=== PATIENT | female | born 1960 | race Caucasian/White ===

== ENCOUNTER 2016-03-16 14:41 | Emergency (ER) | payer BC ==
[~2016-03-16] VITALS: Ht 157.5 cm; Wt 90.0 kg
[~2016-03-16 14:41] MED LIST: CELEXA PO; VESICARE PO
[2016-03-16 14:47] VITALS: Ht 157.5 cm; Wt 90.0 kg
[2016-03-16] MEDS ORDERED: PROM5SYR2 PO (14:59)
[2016-03-16] MEDS ORDERED: AZIT250T94 PO (14:59)
--- NOTE | 2016-03-16 15:04 | ERD ---
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 She denies any nausea or vomiting. Her symptoms have been going on since Monday approximately 3-4 days. She is taking [id number] medications at home. No chest pain or shortness of breath. ROS All systems reviewed and are negative except as per history of present illness. Medications Home Meds Active Scripts Promethazine HCl/Codeine (Prometh-Codein 6.25-10 mg/5 ml) 5 Ml Syrup, 5 ML PO Q8 , #6 OZ Prov:CASANDRA BILLS PA-C 03/16/16 Azithromycin* (Zithromax*) 250 Mg Tablet, 250 MG PO .ZPACK DIRECTED, #6 TAB TAKE 500 MG (2 TABS) THE FIRST DAY THEN 250 MG (1 TAB) DAYS 2-5 Prov:CASANDRA BILLS PA-C 03/16/16 Reported Medications [Celexa] No Conflict Check, PO 06/01/15 [Vesicare] No Conflict Check, PO 06/01/15 Allergies Allergies: Coded Allergies: No Known Allergy (Unverified , 06/01/15) PMhx/Soc History of Surgery: Yes (right elbow, right ankle) Anesthesia Reaction: No Hx Neurological Disorder: No Hx Respiratory Disorders: No Hx Cardiac Disorders: No Hx Psychiatric Problems: Yes (depression ) Hx Miscellaneous Medical Probl: No Hx Alcohol Use: Yes (social) Hx Substance Use: No Hx Tobacco Use: No FmHx Family History: No diabetes Physical Exam Vitals Vital Signs Date Time Temp Pulse Resp B/P Pulse Ox O2 Delivery O2 Flow Rate FiO2 03/16/16 14:47 98.2 69 18 137/69 98 Physical Exam Const: [] Head: Atraumatic Eyes: Normal Conjunctiva ENT: Normal External Ears, Nose and Mouth. Neck: Full range of motion..~ No meningismus. Resp: Clear to auscultation bilaterally Cardio: Regular rate and rhythm, no murmurs Abd: Soft, non tender, non distended. Normal bowel sounds Procedures/MDM 55-year-old female presents with flulike symptoms. Vital signs are normal she is well-appearing. She has passed the point of effectiveness of Tamiflu and therefore I cannot give her Tamiflu however she would like to try antibiotics that she has tried [id number] medications at home. Low suspicion for pneumonia she is discharged with azithromycin and cough syrup. Recommended this patient follow up with her primary care doctor within 48 hours or return to the emergency room for any worsening of symptoms. However this time I do believe there is suitable for outpatient management. I answered all their questions and they agreed with the plan and were discharged home. Departure Diagnosis: Primary Impression: Bronchitis Condition: Stable Patient Instructions: Bronchitis, Antiobiotic Treatment (Adult) Additional Instructions: Call your primary care doctor TOMORROW for an appointment during the next 1-2 days.See the doctor sooner or return here if your condition worsens before your appointment time. CASANDRA BILLS PA-C Mar 16, 2016 15:04
== END 2016-03-16 15:02 | disposition home or self-care (01) ==
LOC: E/R 14:41
DX: J20.9 Acute bronchitis, unspecified (principal)
CPT/HCPCS: 99284

== ENCOUNTER → 2016-04-18 | Outpatient (CLI) | payer BC ==
[~2016-04-18] MED LIST changes: +AZIT250T94 PO; +PROM5SYR2 PO
--- NOTE | 2016-04-18 18:17 | RADRPT ---
PROCEDURE: XR Cervical Spine. CLINICAL INDICATION: Neck pain. TECHNIQUE: Three views of the cervical spine were performed. Frontal, lateral, and AP open-mouth o dontoid. The images were reviewed on a PACS workstation. COMPARISON: None. FINDINGS: There is mild reversal of the normal cervical lordosis. Alignment is otherwise normal. There is no fracture. There is no lytic or blastic lesion. There are degenerative changes with small osteophytes at C5-6 and C6-7. The disk height is normal. The prevertebral soft tissues are normal. IMPRESSION: 1. Mild degenerative change. 2. Mild reversal of the normal lordosis which may be due to spasm or positioning. 3. Otherwise unremarkable images of the cervical spine. RPTAT: QQ .Bryce Kuo MD, Date Time Electronically viewed and signed by .Bryce Kuo MD, on 04/18/2016 18:17 .R/
== END | disposition home or self-care (01) ==
LOC: RAD 17:02
PROVIDERS: ATTEND Internal Medicine
DX: S16.1XXD Strain of muscle, fascia and tendon at neck level, subsequent encounter (principal)
CPT/HCPCS: 72040

== ENCOUNTER → 2016-05-24 | Outpatient (CLI) | payer BC ==
[2016-05-24 07:10] LABS: ADD SCAN DIFF NO
[2016-05-24 07:11] LABS: BASOPHILS % 0.5 % (0.0-2.0); EOSINOPHILS # 0.1 10^3/ul (0.0-0.5); EOSINOPHILS % 2.4 % (0.0-7.0); HEMATOCRIT 40.1 % (37.0-47.0); HEMOGLOBIN 12.7 g/dl (12.0-16.0); LYMPHOCYTES # 1.4 10^3/ul (0.8-2.9); MEAN CORPUSCULAR HEMOGLOBIN 27.4 pg (29.0-33.0); MEAN CORPUSCULAR HGB CONC 31.7 g/dl (32.0-37.0); MEAN CORPUSCULAR VOLUME 86.4 fl (82.0-101.0); MEAN PLATELET VOLUME 9.4 fl (7.4-10.4); MONOCYTE # 0.5 10^3/ul (0.3-0.9); MONOCYTES % 7.6 % (0.0-11.0); NEUTROPHIL # 3.8 10^3/ul (1.6-7.5); PLATELET COUNT 239 10^3/UL (140-415); RED BLOOD COUNT 4.64 10^6/ul (4.20-5.40); RED CELL DISTRIBUTION WIDTH 13.9 % (11.5-14.5); WHITE BLOOD COUNT 5.9 10^3/ul (4.8-10.8)
[2016-05-24 07:35] LABS: ALBUMIN 3.9 g/dl (3.3-4.9); ALBUMIN/GLOBULIN RATIO 1.34; BILIRUBIN,INDIRECT 0.1 mg/dl (0-1.1); BILIRUBIN,TOTAL 0.1 mg/dl (0.2-1.3); CALCIUM 8.9 mg/dl (8.4-10.2); CREATININE 0.73 mg/dl (0.44-1.00); MAGNESIUM 2.1 mg/dl (1.7-2.5); POTASSIUM 4.4 mmol/L (3.5-5.1); TOTAL PROTEIN 6.8 g/dl (6.1-8.1)
[2016-05-24 08:07] LABS: THYROID STIMULATING HORMONE 3.55 MIU/L (0.465-4.680)
[2016-05-24 08:41] LABS: FOLATE 7.9 ng/ml (2.8-20.0)
[2016-05-24 09:03] LABS: CHOL/HDL RATIO 2.6 RATIO
[2016-05-25 15:06] LABS: ANA SCREEN NEGATIVE (NEGATIVE)
== END | disposition home or self-care (01) ==
LOC: LAB 06:52 → EEVIPCON 06:52
PROVIDERS: ATTEND Internal Medicine
DX: E78.5 Hyperlipidemia, unspecified (principal); E03.9 Hypothyroidism, unspecified; E53.8 Deficiency of other specified B group vitamins
CPT/HCPCS: 80053; 80061; 82607; 82746; 83735; 84436; 84443; 85025; 86038

== ENCOUNTER 2016-07-17 12:01 | Emergency (ER) | payer BC ==
[~2016-07-17] VITALS: Ht 157.5 cm; Wt 80.0 kg
[2016-07-17 12:24] VITALS: Ht 157.5 cm; Wt 80.0 kg
[2016-07-17] MEDS ORDERED: PHEN-537 PO (12:26)
[2016-07-17] MEDS ORDERED: NITR-58 PO (12:26)
[2016-07-17 12:29] LABS: URINE BLOOD (Dip) POC 3+ (NEGATIVE)
--- NOTE | 2016-07-17 12:31 | ERD ---
ER Documentation Chief Complaint Date/Time DATE: 07/17/16 TIME: 12:27 Chief Complaint painful urination started this am HPI 55-year-old female complaining of painful urination since this morning. She has urinary urgency and frequency, along with gross hematuria. Patient states that she does not drink much water throughout the day. Her last UTI was about a year ago. Denies fever or chills. Denies flank pain. Patient has history of multifocal multi-myeloma, is currently receiving IVIG treatment. ROS All systems reviewed and are negative except as per history of present illness. Medications Home Meds Active Scripts Phenazopyridine Hcl* (Pyridium*) 100 Mg Tab, 100 MG PO TID Y for URINARY PAIN, # 6 TAB Prov:FAIZA MULLEN. LICENSED PESTICIDE APPLICATOR 07/17/16 Nitrofurantoin Monohyd Macrocr* (Macrobid*) 100 Mg Capsr, 100 MG PO BID for 7 Days, CAP Prov:FAIZA MULLEN. LICENSED PESTICIDE APPLICATOR 07/17/16 Promethazine HCl/Codeine (Prometh-Codein 6.25-10 mg/5 ml) 5 Ml Syrup, 5 ML PO Q8 , #6 OZ Prov:CASANDRA BILLS PA-C 03/16/16 Azithromycin* (Zithromax*) 250 Mg Tablet, 250 MG PO .ZPACK DIRECTED, #6 TAB TAKE 500 MG (2 TABS) THE FIRST DAY THEN 250 MG (1 TAB) DAYS 2-5 Prov:CASANDRA BILLS PA-C 03/16/16 Reported Medications [Celexa] No Conflict Check, PO 06/01/15 [Vesicare] No Conflict Check, PO 06/01/15 Allergies Allergies: Coded Allergies: No Known Allergy (Unverified , 06/01/15) PMhx/Soc History of Surgery: Yes (right elbow, right ankle) Anesthesia Reaction: No Hx Neurological Disorder: No Hx Respiratory Disorders: No Hx Cardiac Disorders: No Hx Psychiatric Problems: Yes (depression ) Hx Miscellaneous Medical Probl: No Hx Alcohol Use: Yes (social) Hx Substance Use: No Hx Tobacco Use: No Physical Exam Vitals Vital Signs Date Time Temp Pulse Resp B/P Pulse Ox O2 Delivery O2 Flow Rate FiO2 07/17/16 12:24 97.6 64 18 147/66 98 Physical Exam General: Well-developed, well-nourished, conscious and coherent, in no distress Skin: Warm and dry without rash, good texture and turgor Head: Normocephalic without evidence of trauma Eyes: Sclera and conjunctivae normal; pupils equal, round, and reactive to light; extraocular movements are intact Neck: Supple without meningismus or adenopathy. Carotids are equal. Trachea midline. No bruits or JVD Chest: Normal AP diameter. Good expansion without retractions. Nontender. Lungs are clear to auscultate bilaterally with good tidal volume Heart: Regular rate and rhythm. No murmur, rub, or gallops heard Abdomen: Soft and nontender without masses, guarding, or rebound. Bowel sounds are active. No hepatosplenomegaly Back: Without spinal or CVA tenderness Pelvis: Suprapubic tenderness. Extremities: Full range of motion. Good strength bilaterally. No clubbing, cyanosis, or edema. Peripheral pulses are intact. Sensation intact Neuro: Alert and oriented 4, GCS 15. Cranial nerves grossly intact. Motor and sensory exams nonfocal. Moves all extremities. Speech clear. Gait normal Procedures/MDM Well-appearing 55-year-old female presents to ED with UTI symptoms: Dysuria, urinary frequency, urgency, hematuria. Urine dip is positive for UTI. No sign of pyelonephritis. Patient appears well, stable for discharge and outpatient management. Medical decision making shared with patient and family. Education provided to patient and family. Patient and family expressed understanding of the plan. Medications on discharge: Macrobid, Pyridium. Follow-up: Primary care provider in 2-3 days or return to ED if worse. Departure Diagnosis: Primary Impression: UTI (urinary tract infection) Urinary tract infection type: acute cystitis Hematuria presence: with hematuria Qualified Code: N30.01 - Acute cystitis with hematuria Condition: Good Patient Instructions: Understanding Urinary Tract Infections (UTIs) Additional Instructions: Call your primary care doctor TOMORROW for an appointment during the next 2-3 days.See the doctor sooner or return here if your condition worsens before your appointment time. FAIZA MULLEN NP Jul 17, 2016 12:31
== END 2016-07-17 13:10 | disposition home or self-care (01) ==
LOC: E/R 12:01 → FTE 13:10
DX: N30.01 Acute cystitis with hematuria (principal); R40.2412 Glasgow coma scale score 13-15, at arrival to emergency department
CPT/HCPCS: 81003; 99283

== ENCOUNTER → 2016-08-26 | Outpatient (CLI) | payer BC ==
[~2016-08-26] MED LIST changes: +NITR-58 PO; +PHEN-537 PO
[2016-08-26 06:56] LABS: ADD SCAN DIFF NO
[2016-08-26 07:14] LABS: BASOPHILS % 0.5 % (0.0-2.0); EOSINOPHILS # 0.1 10^3/ul (0.0-0.5); EOSINOPHILS % 3.1 % (0.0-7.0); HEMATOCRIT 37.2 % (37.0-47.0); HEMOGLOBIN 12.6 g/dl (12.0-16.0); LYMPHOCYTES # 0.9 10^3/ul (0.8-2.9); LYMPHOCYTES % 21.8 % (15.0-51.0); MEAN CORPUSCULAR HEMOGLOBIN 29.3 pg (29.0-33.0); MEAN CORPUSCULAR HGB CONC 33.9 g/dl (32.0-37.0); MEAN CORPUSCULAR VOLUME 86.5 fl (82.0-101.0); MEAN PLATELET VOLUME 9.3 fl (7.4-10.4); MONOCYTE # 0.3 10^3/ul (0.3-0.9); NEUTROPHIL # 2.8 10^3/ul (1.6-7.5); NEUTROPHILS % 67.4 % (39.0-77.0); PLATELET COUNT 222 10^3/UL (140-415); RED CELL DISTRIBUTION WIDTH 14.1 % (11.5-14.5); WHITE BLOOD COUNT 4.2 10^3/ul (4.8-10.8)
[2016-08-26 07:31] LABS: ALBUMIN 3.9 g/dl (3.3-4.9); ALBUMIN/GLOBULIN RATIO 0.79; BILIRUBIN,INDIRECT 0.3 mg/dl (0-1.1); BILIRUBIN,TOTAL 0.3 mg/dl (0.2-1.3); CALCIUM 9.4 mg/dl (8.4-10.2); CHOL/HDL RATIO 3.7 RATIO; CREATININE 0.79 mg/dl (0.44-1.00); POTASSIUM 4.5 mmol/L (3.5-5.1); TOTAL PROTEIN 8.8 g/dl (6.1-8.1)
[2016-08-26 08:01] LABS: THYROID STIMULATING HORMONE 3.49 MIU/L (0.465-4.680)
== END | disposition home or self-care (01) ==
LOC: LAB 06:48
PROVIDERS: ATTEND Internal Medicine
DX: E03.9 Hypothyroidism, unspecified (principal); E78.5 Hyperlipidemia, unspecified
CPT/HCPCS: 80053; 80061; 84436; 84443; 85025

== ENCOUNTER 2016-12-24 08:48 | Emergency (ER) | payer BC ==
[~2016-12-24] VITALS: Ht 157.5 cm; Wt 73.0 kg
[2016-12-24 08:51] VITALS: Ht 157.5 cm; Wt 73.0 kg
--- NOTE | 2016-12-24 08:59 | ERD ---
ER Documentation Chief Complaint Chief Complaint dysuria x 2 days HPI 56y/o female patient with a significant medical history, presents to the emergency department c/o gradual onset of dysuria, constant, that started 2 days ago. The pain is sharp, burning, rated 6/10, radiated to pelvic area. The symptoms are probably caused by a urinary tract infection and are associated with nominal bloating. Aggravating factors: None. Alleviating factors: None. Denies fever, chills, N/V/D. Pertinent history of previous episodes. Treatment attempted: None at this time. ROS SYSTEMIC symptoms: no fever, chills, no night sweats, no weight loss EYE symptoms: No blurred vision, no eye discharge OTOLARYNGEAL symptoms: No hearing loss. No ear pain, no sore throat CARDIOVASCULAR symptoms: No chest pain or discomfort, no palpitations. PULMONARY symptoms: No dyspnea, no cough, no wheezing. GASTROINTESTINAL symptoms: No abdominal pain, no nausea, no vomiting, no diarrhea MUSCULOSKELETAL symptoms: No arthralgias, no muscle aches. NEUROLOGY symptoms: No confusion, no syncope, no numbness or tingling. SKIN no rashes Medications Home Meds Active Scripts Phenazopyridine Hcl* (Pyridium*) 200 Mg Tab, 200 MG PO TID Y for URINARY PAIN, # 12 TAB Prov:SAPPHIRE ROSENTHAL MD 12/24/16 Ciprofloxacin Hcl* (Ciprofloxacin Hcl*) 250 Mg Tablet, 250 MG PO BID, #10 TAB Prov:SAPPHIRE ROSENTHAL MD 12/24/16 Phenazopyridine Hcl* (Pyridium*) 100 Mg Tab, 100 MG PO TID Y for URINARY PAIN, # 6 TAB Prov:FAIZA MULLEN NP 07/17/16 Nitrofurantoin Monohyd Macrocr* (Macrobid*) 100 Mg Capsr, 100 MG PO BID for 7 Days, CAP Prov:FAIZA MULLEN NP 07/17/16 Promethazine HCl/Codeine (Prometh-Codein 6.25-10 mg/5 ml) 5 Ml Syrup, 5 ML PO Q8 , #6 OZ Prov:CASANDRA BILLS PA-C 03/16/16 Azithromycin* (Zithromax*) 250 Mg Tablet, 250 MG PO .LAVINIA DIRECTED, #6 TAB TAKE 500 MG (2 TABS) THE FIRST DAY THEN 250 MG (1 TAB) DAYS 2-5 Prov:CASANDRA BILLS APO 03/16/16 Reported Medications [Celexa] No Conflict Check, PO 06/01/15 [Vesicare] No Conflict Check, PO 06/01/15 Allergies Allergies: Coded Allergies: No Known Allergy (Unverified , 06/01/15) PMhx/Soc History of Surgery: No Anesthesia Reaction: No Hx Neurological Disorder: No Hx Respiratory Disorders: No Hx Cardiac Disorders: No Hx Psychiatric Problems: No Hx Miscellaneous Medical Probl: No Hx Alcohol Use: No Hx Substance Use: No Hx Tobacco Use: No Physical Exam Vitals Vital Signs Date Time Temp Pulse Resp B/P Pulse Ox O2 Delivery O2 Flow Rate FiO2 12/24/16 08:51 97.4 62 18 132/63 96 Physical Exam Patient is in no acute distress, vital signs stable. Alert and fully oriented. EYES: PERRLA, EOMI, Sclera and conjunctiva appear normal. EARS: Canals clear, tympanic membranes WNL THROAT: Normal oropharynx. NECK: Supple, No lymphadenopathy. Full ROM without pain or tenderness. HEART: RRR, no rubs, murmurs, clicks or gallops. LUNGS: Clear to auscultation. ABDOMEN: Soft, non-tender without masses or hepatosplenomegaly. EXTREMITIES: No edema bilaterally. MUSC: Full ROM, no deformity, normal back exam Results 24 hrs Laboratory Tests Test 12/24/16 09:27 Urine Color STRAW Urine Clarity CLEAR Urine pH 7.0 Urine Specific [place] 1.004 Urine Ketones NEGATIVEmg/dL Urine Nitrite NEGATIVEmg/dL Urine Bilirubin NEGATIVEmg/dL Urine Urobilinogen NEGATIVEmg/dL Urine Leukocyte Esterase 1+Ele/ul Urine Microscopic RBC 1/HPF Urine Microscopic WBC 50/HPF Urine Hemoglobin 1+mg/dL Urine Glucose NEGATIVEmg/dL Urine Total Protein NEGATIVEmg/dl Procedures/MDM 56 y/o female patient previously healthy, presents to the ED c/o dysuria for 2 days. Vital signs stable, Physical exam unremarkable. Differential diagnosis include but not limited to: Cystitis, dysmenorrhea, ovarian cyst, vaginitis. Pertinent Data: UA: Consistent with urinary tract infection Physical examination and clinical presentation consistent most likely with UTI. During the ED course the patient remained stable and asymptomatic Results and clinical impression discussed with the patient who agrees with management. The patient is stable to be treated outpatient and will be discharged home with a Rx for ciprofloxacin and Pyridium Side effects of prescribed medications (headache, rash, nausea, vomiting, diarrhea) were reviewed. The patient was instructed to follow up with the primary care provider in the next 48h. If symptoms persist, worsen or new symptoms develop, then patient should return to the ED immediately. Instructions explained and given to patient with acknowledgment and demonstrated understanding. Disclaimer: Inadvertent spelling and grammatical errors are likely due to EHR/ dictation software use and do not reflect on the overall quality of patient care. Also, please note that the electronic time recorded on this note does not necessarily reflect the actual time of the patient encounter. Departure Diagnosis: Primary Impression: UTI (urinary tract infection) Condition: Stable Additional Instructions: Thank you very much for allowing us to participate in your care. Your health and safety is our top priority at [facility]. Have prescriptions filled and follow precisely the directions on the label. Follow-up with primary care provider during the next 4 days and bring all the information and medications prescribed. If illness has not improved in 2 days, then make an appointment with primary care provider. If the provider is unavailable, return to the Emergency Department immediately. SAPPHIRE ROSENTHAL MD Dec 24, 2016 08:59
[2016-12-24 09:43] LABS: ADD UMIC YES; UR ASCORBIC ACID NEGATIVE (NEGATIVE); UR BILIRUBIN (Dip) NEGATIVE (NEGATIVE); UR BLOOD (Dip) 1+ mg/dL (NEGATIVE); UR CLARITY CLEAR (CLEAR); UR COLOR STRAW (YELLOW); UR GLUCOSE (Dip) NEGATIVE (NEGATIVE); UR KETONES (Dip) NEGATIVE (NEGATIVE); UR LEUKOCYTE ESTERASE (Dip) 1+ Leu/ul (NEGATIVE); UR NITRITE (Dip) NEGATIVE (NEGATIVE); UR RBC 1 /HPF (0-5); UR SPECIFIC GRAVITY (Dip) 1.004 (1.003-1.030); UR TOTAL PROTEIN (Dip) NEGATIVE (NEGATIVE); UR UROBILINOGEN (Dip) NEGATIVE (NEGATIVE)
[2016-12-24] MEDS ORDERED: CIPR-193 PO (10:11)
[2016-12-24] MEDS ORDERED: PHEN-538 PO (10:11)
== END 2016-12-24 10:15 | disposition home or self-care (01) ==
LOC: FTE 08:48
DX: N39.0 Urinary tract infection, site not specified (principal)
CPT/HCPCS: 81001; 87086; 99283

== ENCOUNTER → 2017-01-25 | Outpatient (CLI) | payer BC ==
[~2017-01-25] MED LIST changes: +CIPR-193 PO; +PHEN-538 PO
[2017-01-25 07:51] LABS: BASOPHILS % 0.7 % (0.0-2.0); EOSINOPHILS # 0.1 10^3/ul (0.0-0.5); EOSINOPHILS % 2.5 % (0.0-7.0); HEMATOCRIT 39.3 % (37.0-47.0); HEMOGLOBIN 12.8 g/dl (12.0-16.0); LYMPHOCYTES # 1.1 10^3/ul (0.8-2.9); LYMPHOCYTES % 19.2 % (15.0-51.0); MEAN CORPUSCULAR HEMOGLOBIN 27.4 pg (29.0-33.0); MEAN CORPUSCULAR HGB CONC 32.6 g/dl (32.0-37.0); MEAN CORPUSCULAR VOLUME 84.2 fl (82.0-101.0); MEAN PLATELET VOLUME 9.4 fl (7.4-10.4); MONOCYTE # 0.4 10^3/ul (0.3-0.9); NEUTROPHIL # 3.9 10^3/ul (1.6-7.5); NEUTROPHILS % 70.2 % (39.0-77.0); PLATELET COUNT 257 10^3/UL (140-415); RED BLOOD COUNT 4.67 10^6/ul (4.20-5.40); RED CELL DISTRIBUTION WIDTH 13.2 % (11.5-14.5); WHITE BLOOD COUNT 5.6 10^3/ul (4.8-10.8)
[2017-01-25 08:22] LABS: ALBUMIN 3.9 g/dl (3.3-4.9); ALBUMIN/GLOBULIN RATIO 1.11; BILIRUBIN,INDIRECT 0.5 mg/dl (0-1.1); BILIRUBIN,TOTAL 0.5 mg/dl (0.2-1.3); CALCIUM 9.6 mg/dl (8.4-10.2); CHOL/HDL RATIO 3.3 RATIO; CREATININE 0.76 mg/dl (0.44-1.00); POTASSIUM 4.2 mmol/L (3.5-5.1); TOTAL PROTEIN 7.4 g/dl (6.1-8.1)
[2017-01-25 08:45] LABS: THYROID STIMULATING HORMONE 3.58 MIU/L (0.465-4.680)
== END | disposition home or self-care (01) ==
LOC: LAB 07:10
PROVIDERS: ATTEND Internal Medicine
DX: E78.5 Hyperlipidemia, unspecified (principal); E03.9 Hypothyroidism, unspecified
CPT/HCPCS: 80053; 80061; 84436; 84443; 85025

== ENCOUNTER → 2017-04-18 | Outpatient (CLI) | END | disposition home or self-care (01) ==

== ENCOUNTER → 2017-06-20 | Outpatient (CLI) | END | disposition home or self-care (01) ==

== ENCOUNTER → 2017-06-22 | Outpatient (CLI) | END | disposition home or self-care (01) ==

== ENCOUNTER 2017-07-20 14:08 | Day surgery (SDC) | END 2017-07-20 16:28 | disposition home or self-care (01) ==

== ENCOUNTER → 2017-07-29 | Outpatient (CLI) | END | disposition home or self-care (01) ==

== ENCOUNTER → 2017-08-16 | Outpatient (CLI) | END | disposition home or self-care (01) ==

== ENCOUNTER → 2017-08-26 | Outpatient (CLI) | END | disposition home or self-care (01) ==